=== PATIENT | female | born 1970 | race African-American/Black ===

== ENCOUNTER 2023-08-07 23:47 | Emergency (ER) | payer OTHER ==
[~2023-08-07] VITALS: Ht 172.7 cm; Wt 100.0 kg
[2023-08-07 23:57] VITALS: TEMP 98.7
[2023-08-08] MEDS ORDERED: ACETAMINOPHEN 500 MG TABLET PO ONE (00:30)
[2023-08-08] MEDS ORDERED: DOXYCYCLINE HYCLATE 100 MG TABLET PO ONE (00:30)
[2023-08-08] MEDS ORDERED: BACITRACIN 0.9 GM PACKET OINTMENT TP ONE (00:30)
[2023-08-08] MEDS ORDERED: PERTUSS(ACELL),DIPH,TET VAC/PF 0.5 ML SYRINGE IM. ONE (00:30)
[2023-08-08] MEDS ORDERED: DOXY-354 PO (01:58)
[2023-08-08] MEDS ORDERED: IBUP-1492 PO (01:58)
[2023-08-08 02:00] VITALS: BP 122/79; PULSE 78; RESP 18
== END 2023-08-08 02:19 | disposition home or self-care (01) ==
LOC: EMS 23:50
DX: S80.212A Abrasion, left knee, initial encounter (principal); L03.116 Cellulitis of left lower limb; F41.9 Anxiety disorder, unspecified; F32.A Depression, unspecified; F17.210 Nicotine dependence, cigarettes, uncomplicated; Z90.49 Acquired absence of other specified parts of digestive tract; Z98.890 Other specified postprocedural states; W19.XXXA Unspecified fall, initial encounter; Y93.89 Activity, other specified; Y92.89 Other specified places as the place of occurrence of the external cause; Y99.8 Other external cause status
CPT/HCPCS: 73503; 90471; 90715; 99284

== ENCOUNTER 2025-04-02 01:16 | Emergency (ER) | payer OTHER ==
[~2025-04-02] VITALS: Ht 172.7 cm; Wt 99.5 kg
[~2025-04-02 01:16] MED LIST: DOXY-354 PO; IBUP-1492 PO
[2025-04-02 01:23] VITALS: TEMP 98.6
[2025-04-02 03:40] VITALS: BP 129/88; PULSE 74; RESP 16; O2SAT 97
== END 2025-04-02 03:50 | disposition left against medical advice (07) ==
LOC: EMS 01:20
DX: L76.22 Postprocedural hemorrhage of skin and subcutaneous tissue following other procedure (principal); F17.210 Nicotine dependence, cigarettes, uncomplicated; Z90.49 Acquired absence of other specified parts of digestive tract
CPT/HCPCS: 99281; Z7502